=== PATIENT | female | born 1975 | race African-American/Black ===

== ENCOUNTER 2018-03-08 13:47 | Inpatient (IN) | payer OTHER ==
[~2018-03-08] VITALS: Ht 152.4 cm; Wt 159.7 kg
--- NOTE | ~2018-03-08 | EKG ---
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
--- NOTE | ~2018-03-08 | EKG ---
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1975 Requested By: Salvador Clement Order Number: [id number] MD: Reymundo Lewis Measurements Intervals [place] Rate: 90 P: 54 [place]: 172 QRS: 27 QRSD: 113 T: 23 QT: 389 QTc: 476 Interpretive Statements Sinus rhythm Incomplete right bundle branch block Compared to ECG 03/08/2018 13:55:58 Sinus rhythm is replaced SVT Electronically Signed On 03-09-2018 7:56:52 PRODUCT TECHNOLOGY SCIENTIST by Reymundo Lewis [email or web address] <ELECTRONICALLY SIGNED> By: Reymundo Lewis MD, [facility] 03/09/18 [phone] Reymundo Lewis MD, [facility] /EPI
--- NOTE | ~2018-03-08 | HC ---
[facility] [place] [address] CONSULTATION Name: SHANNA PARK Room #: 457-P [facility] IN M.R.#: [id number] Admission: 03/08/18 Attend Phys: Isaac Ko MD Discharge: 03/09/18 Date of : 73 Report #: [id number] THIS REPORT FOR: //name// CC: Isaac Barillas MD DATE OF SERVICE: 03/08/2018 HISTORY OF PRESENT ILLNESS: The patient is a 42-year-old single black female who I was asked to see in the hospital today after she was noted to be tachycardic. The history is obtained from some old records as well as the patient. The patient has had a history of chest pain. She was actually referred to my partner, Dr. John Staton, in the past. He apparently referred her for a stress test that was unremarkable. It was felt that her chest pain was noncardiac. She last saw Dr. Staton in September. She does not exercise on a regular basis and has a sedentary job. She states that recently she has had recurrent coughing spells. She went to urgent care and was placed on antibiotic. She is now on her second course of antibiotics. She continues to cough up some white phlegm. Denies any fever, runny nose, sore throat. Today, she was coughing and felt short of breath. Her son brought her to the [place] [facility]. In the Emergency Room, she was noted to have a heart rate of 160. She was given 15 mg of diltiazem intravenously. She converted to sinus rhythm. I was asked to see her for further evaluation and treatment. She denies any significant chest pain. She denied a history of palpitations, lightheadedness, syncope, increasing edema. PAST MEDICAL HISTORY: Otherwise, significant for previous . She has had endometrial ablation. She has a long history of hypertension, diabetes. MEDICATIONS: Consist of lisinopril, metformin, Januvia, tramadol. ALLERGIES: She has no known drug allergies. FAMILY HISTORY: Heart disease runs in the family. SOCIAL HISTORY: She has never been . She does have 6 children. 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 She quit smoking years ago, rarely drinks alcohol. No illicit drug use. REVIEW OF SYSTEMS: She is morbidly obese, standing 5 feet 10 and weighing 370 pounds. She has no history of stroke. She denies sleep apnea. No history of liver disease, peptic ulcer disease, kidney disease or cancer. Her last menstrual period was in January. PHYSICAL EXAMINATION: [address] [address] CONSULTATION Name: SHANNA PARK Margarita Room #: 457-P [facility] IN ..#: [id number] Admission: 03/08/18 Attend Phys: Isaac Ko MD Discharge: 03/09/18 Date of : 73 Report #: [id number] GENERAL: Revealed a large young black female lying in bed. She appeared in no distress. VITAL SIGNS: Currently, blood pressure 140/80, pulse is 90. She is afebrile. HEENT: She was anicteric, conjunctivae pink. Mucous membranes appear moist. NECK: Veins difficult to assess due to obesity. Neck was supple. CHEST: Clear to auscultation. CARDIAC: Regular rate and rhythm. ABDOMEN: Obese. EXTREMITIES: Had no pitting edema. Dorsalis pedis pulse could not be palpated. SKIN: Cool and dry. NEUROLOGIC: Nonfocal. DIAGNOSTIC DATA: ECG on admission showed a narrow complex tachycardia at 160 beats per minute that was regular. There appeared to be no significant ST or T-wave change. Currently, the patient is in sinus rhythm. Her workup today, she had a portable chest x-ray that showed normal heart size, clear lung medel. CT scan of the chest using a PE protocol with contrast showed no pulmonary embolus, a cyst in the spleen, what appeared to be a small nodule of the thyroid. Previous nuclear stress test that was done in June was performed using Lexiscan. Images showed evidence of breast attenuation, but no reversible defects, normal systolic function. Her lab work, sodium 132, potassium 4.6, BUN 15, creatinine was 1.4, glucose 377. Troponin 0.06. BNP 99. White blood cell count 15.4, hemoglobin 11.5. HCG qualitative was negative. IMPRESSION AND RECOMMENDATIONS: 1. Paroxysmal supraventricular tachycardia. At this time, I would consider antiarrhythmic therapy. I would recommend starting the patient on flecainide. 2. Chronic cough. Suspect related to CLAIRE inhibitor. I would recommend stopping and switching to an ARB. 3. Morbid obesity. 4. Hypertension. The patient is on CLAIRE inhibitor. 5. Diabetes. 6. Previous tobacco abuse. <ELECTRONICALLY SIGNED> By: Salvador Clement MD, FACC 03/10/18 1006 [id number] Salvador Clement MD, FAC /nt
[~2018-03-08 13:47] MED LIST: ASPIRIN EC81 M1 PO; FLEXERIL PO; IBUPROFEN 200200 M1 PO; IRON325 PO; LISINOPRIL30 MG PO; PAIN RELIEF PM1 EAC2 PO
[2018-03-08] MEDS ORDERED: GLUCOPHAGE1000 MG PO (13:59)
[2018-03-08 14:07] LABS: ABSOLUTE NEUTROPHILS 11.1 thou/uL (1.4-8.2); BASOPHILS 1.1 % (0.0-2.0); EOSINOPHILS 0.1 % (0.0-3.0); HEMATOCRIT 36.3 % (37.0-47.0); HEMOGLOBIN 11.5 gm/dL (12.0-15.0); LYMPHOCYTES 23.7 % (24.0-44.0); MCH 22.7 pg (26.0-34.0); MCHC 31.6 g/dL (28.0-37.0); MONOCYTES 3.2 % (1.0-8.0); PLATELET COUNT 358 thou/uL (150-400); POLYS 71.9 % (36.0-66.0); RBC 5.04 mil/uL (4.20-5.00); RDW 19.6 % (10.5-14.5); WBC 15.4 thou/uL (4.0-11.0)
[2018-03-08 14:14] LABS: ANION GAP 11 mmol/L (7-16); BUN 15 mg/dL (7-18); CALCIUM 9.1 mg/dL (8.5-10.1); CHLORIDE 98 mmol/L (98-107); CO2 23 mmol/L (21-32); CREATININE 1.4 mg/dL (0.6-1.0); GLUCOSE 377 mg/dL (74-106); POTASSIUM 4.6 mmol/L (3.5-5.1); SODIUM 132 mmol/L (136-145)
[2018-03-08 14:23] LABS: TROPONIN-I <0.06 ng/mL (<0.06)
[2018-03-08 14:29] LABS: ANISOCYTOSIS 2+
[2018-03-08 14:30] LABS: MICROCYTES 1+; POLYCHROMASIA OCCASIONAL
[2018-03-08 14:31] LABS: HYPOCHROMASIA 1+
[2018-03-08 16:28] VITALS: BP 117/61
[2018-03-08 16:40] VITALS: BP 131/66
[2018-03-08 17:43] VITALS: BP 138/97
[2018-03-09 04:25] VITALS: BP 126/78
[2018-03-09 04:52] LABS: HEMATOCRIT 32.6 % (37.0-47.0); HEMOGLOBIN 10.3 gm/dL (12.0-15.0); MCH 22.5 pg (26.0-34.0); MCHC 31.5 g/dL (28.0-37.0); MCV 71.4 fL (80.0-100.0); RBC 4.57 mil/uL (4.20-5.00); RDW 19.6 % (10.5-14.5); WBC 12.9 thou/uL (4.0-11.0)
[2018-03-09 05:15] LABS: ALBUMIN 2.6 g/dL (3.4-5.0); CALCIUM 8.3 mg/dL (8.5-10.1); CREATININE 0.9 mg/dL (0.6-1.0); TOTAL BILIRUBIN 0.3 mg/dL (<0.1-1.0); TOTAL PROTEIN 7.9 g/dL (6.4-8.2); TROPONIN-I 0.06 ng/mL (<0.06)
[2018-03-09 05:28] LABS: POTASSIUM 3.4 mmol/L (3.5-5.1)
[2018-03-09 07:08] VITALS: BP 131/75
[2018-03-09] MEDS ORDERED: CARDIZEM CD240 MG PO (08:53)
[2018-03-09] MEDS ORDERED: FLECAINIDE ACET50 M1 PO (08:53)
[2018-03-09 08:59] VITALS: BP 131/75
== END 2018-03-09 10:07 | disposition home or self-care (01) | DRG 308 ==
LOC: ER 13:47 → 4W 16:17 → EROBS 16:17 → 4W 17:08
PROVIDERS: Emergency Medicine; Hospitalist
DX: I47.1 Supraventricular tachycardia (principal); E43 Unspecified severe protein-calorie malnutrition; Z68.44 Body mass index [BMI] 60.0-69.9, adult; I10 Essential (primary) hypertension; E11.9 Type 2 diabetes mellitus without complications; E66.01 Morbid (severe) obesity due to excess calories; Z98.818 Other dental procedure status; Z87.891 Personal history of nicotine dependence; Z82.49 Family history of ischemic heart disease and other diseases of the circulatory system; Z79.899 Other long term (current) drug therapy
CPT/HCPCS: 10045

== ENCOUNTER → 2020-10-16 | Outpatient (CLI) | payer OTHER ==
[~2020-10-16] MED LIST changes: +CARDIZEM CD240 MG PO; +FLECAINIDE ACET50 M1 PO; +GLUCOPHAGE1000 MG PO
== END ==
LOC: CAT 08:42
PROVIDERS: ATTEND Internal Medicine Cardiovascular Disease
DX: Z13.6 Encounter for screening for cardiovascular disorders (principal)